=== PATIENT | male | born 1960 | race Caucasian/White ===

== ENCOUNTER → 2016-07-23 | Outpatient (CLI) | payer OTHER | LOC: MMPC 09:00 | PROVIDERS: ATTEND Family Medicine | DX: I10 Essential (primary) hypertension (principal); E66.8 Other obesity; F45.8 Other somatoform disorders; M25.552 Pain in left hip | CPT/HCPCS: 99214; G0463 ==

== ENCOUNTER → 2016-09-25 | Outpatient (CLI) | payer OTHER ==
--- NOTE | 2016-09-25 17:10 | DI ---
NM BONE JOINT WHOLE BODY,09/25/2016 11:30 AM: Clinical History: Right hip pain Previous Exam: Plain films of the hip performed August 31, 2015 Radiopharmaceutical: 31.1 mCi of technetium 99m MDP administered intravenously. Findings: Multiple whole body images are obtained after intravenous administration of contrast. There are coned-down images obtained through the pelvis as well. There is some very mild increased up take within the posterior articulating facets at the right L4 level. There are mild degenerative changes of the shoulders which are symmetric and normal. There is some focal increased uptake involving the first metatarsophalangeal joints bilaterally worse on the left than the right. The hips demonstrate some barely perceptible increased uptake involving the superior lateral margins of the acetabulum worse on the right than on the left. There is increased uptake involving the first carpometacarpal joints bilaterally. There is excreted activity within the kidneys bilaterally. There is some symmetrically increased uptake within the sacroiliac joints bilaterally. Impression: 1. Very mild increased uptake involving the superior lateral acetabulum on the right. These findings are most consistent with early degenerative osteoarthritis of the hip. 2. Increased uptake within the feet, knees hands shoulders and lumbar spine in a typical pattern cons istent with mild osteoarthritis.
== END ==
LOC: NM 11:03
PROVIDERS: ATTEND Family Medicine
DX: M25.552 Pain in left hip (principal); M16.12 Unilateral primary osteoarthritis, left hip
CPT/HCPCS: 78306; A9503

== ENCOUNTER → 2016-10-21 | Outpatient (CLI) | payer OTHER | LOC: MMPC 09:00 | PROVIDERS: ATTEND Family Medicine | DX: I10 Essential (primary) hypertension (principal); M25.552 Pain in left hip; E66.8 Other obesity; N52.9 Male erectile dysfunction, unspecified; F17.210 Nicotine dependence, cigarettes, uncomplicated | CPT/HCPCS: 99214; G0463 ==

== ENCOUNTER → 2017-01-20 | Outpatient (CLI) | payer OTHER | LOC: MMPC 09:00 | PROVIDERS: ATTEND Family Medicine | DX: I10 Essential (primary) hypertension (principal); E66.8 Other obesity; F45.8 Other somatoform disorders; M25.552 Pain in left hip | CPT/HCPCS: 99213; G0463 ==